=== PATIENT | male | born 1975 | race Hispanic/Latino ===

== ENCOUNTER → 2019-12-24 | Outpatient (CLI) | payer OTHER | END | disposition home or self-care (01) | LOC: RAH 14:27 | PROVIDERS: ATTEND Family Medicine | DX: Z13.6 Encounter for screening for cardiovascular disorders (principal) | CPT/HCPCS: 75571 ==

== ENCOUNTER 2024-11-17 10:15 | Emergency (ER) | payer BC, OTHER ==
[~2024-11-17] VITALS: Ht 188 cm; Wt 117.9 kg
--- NOTE | 2024-11-17 10:35 | ERN ---
ED Note History of Present Illness Stated Complaint: ANKLE INJURY Chief Complaint: Ankle Problem Time Seen by MD: 10:19 Dictation: PATIENT IS A 49-YEAR-OLD MALE HERE WITH TWO COMPLAINTS, 1ST COMPLAINT IS RIGHT DIFFUSE ANKLE PAIN AFTER HE WAS WALKING OUT OF A STORE THIS MORNING AND TWISTED TO AFTER HE STEPPED INTO A HOLE. HE HAS BEEN ABLE TO AMBULATE WITH PAINFUL WEIGHT-BEARING SINCE THE INCIDENT. NEUROVASCULAR CMS INTACT SKIN IS INTACT TO THE RIGHT ANKLE. SECOND COMPLAINT IS HIS BLOOD PRESSURE IS CURRENTLY 203 SYSTOLIC, LAST TOOK HIS BLOOD PRESSURE MEDICATION TWO DAYS AGO. STATES HE DOES NOT TAKE IT DAILY BECAUSE HE FORGETS ABOUT IT. Allergies: Coded Allergies: No Known Drug Allergies (Unverified Allergy, Unknown, 11/17/24) Past Medical History Past Medical History: Diabetes-Type II, Hypertension Surgical History: Other Surgical History Other: HERNIA REPAIR SX, FACIAL SX RN Note Reviewed/Agreed w/PFSH: Yes Review of System Dictation CONSTITUTIONAL: NEGATIVE EXCEPT FOR HPI HEAD/FACE: NEGATIVE EXCEPT FOR HPI EENT: NEGATIVE EXCEPT FOR HPI RESPIRATORY: NEGATIVE EXCEPT FOR HPI GASTROINTESTINAL/ABDOMINAL: NEGATIVE EXCEPT FOR HPI GENITOURINARY: NEGATIVE EXCEPT FOR HPI MUSCULOSKELETAL: NEGATIVE EXCEPT FOR HPI DIFFUSE RIGHT ANKLE PAIN INTEGUMENTARY: NEGATIVE EXCEPT FOR HPI NEUROLOGICAL/PSYCH: NEGATIVE EXCEPT FOR HPI HEMATOLOGIC/LYMPHATIC: NEGATIVE EXCEPT FOR HPI ALL SYSTEMS NEGATIVE, EXCEPT NOTED ABOVE. 13 POINT REVIEW OF SYSTEMS ASSESSED AND ALL NEGATIVE EXCEPT FOR ABOVE. Initial Vital Sign VS Vital Signs Date Time Temp Pulse Resp B/P (MAP) Pulse Ox O2 Delivery O2 Flow Rate FiO2 11/17/24 10:17 98.8 77 18 203/120 97 Room Air 0 11/17/24 10:27 21 Physical Exam Dictation VITAL SIGNS REVIEWED GENERAL APPEARANCE: ALERT, ORIENTED X 3, MILD ACUTE DISTRESS, WELL DEVELOPED, NOURISHED. HEAD AND FACE: NON-TRAUMATIC. EYES: PERRL, PINK CONJUNCTIVAS, EYELID NO TRAUMA, ANTERIOR CHAMBER WITH ARCUS SENILIS. EARS: PINNAS INTACT AND NO SIGNS OF TRAUMA OR ERYTHEMA EAR CANALS CLEAR AND NO DISCHARGE TM NO ERYTHEMA NOSE: NO DISCHARGE, NO BLEEDING. OROPHARYNX: MOUTH NORMAL, TONGUE PINK, PHARYNX CLEAR,NO ERYTHEMA, TONSILS NO EXUDATES, NO ABSCESSES NOTED, MUCOUS MEMBRANE MOIST NECK: SUPPLE, NON-TENDER, NO THYROMEGALY, NO MASSES, NO JVD, NO BRUITS BREAST:DEFERRED CHEST:NO TENDERNESS, NO CREPITUS, NO PARADOXICAL MOVEMENT, NO RETRACTIONS LUNGS:CLEAR, WELL-VENTILATED, SYMMETRIC, NO RALES, NO WHEEZING, NO RHONCHI, NO STRIDOR, GOOD BREATH SOUNDS BILATERALLY HEART: REGULAR RATE, REGULAR RHYTHM, NO MURMUR, NO GALLOPS VASCULAR: NO PERIPHERAL EDEMA, ABDOMEN: SOFT, POSITIVE BOWEL SOUNDS, NONDISTENDED, NO GUARDING, NONTENDER, NO REBOUND, NO MASSES NO HEPATOMEGALY, NO SPLENOMEGALY, NO PENNY'S SIGN, NO HERNIAS. RECTAL: DEFERRED GENITAL: DEFERRED NEUROLOGICAL: NORMAL SPEECH, MOTOR FUNCTION INTACT, SENSORY FUNCTION INTACT MUSCULOSKELETAL: NECK NONTENDER, FULL RANGE OF MOTION, BACK NONTENDER, FULL RANGE OF MOTION, EXTREMITIES: DIFFUSE RIGHT ANKLE PAIN TENDERNESS. SKIN INTACT DECREASED RANGE OF MOTION SECONDARY TO PAIN. SKIN: COLOR PINK, DRY, NO TURGOR, NO RASH, NO LACERATIONS, NO ABRASIONS, NO CONTUSIONS. LYMPHATIC: DEFERRED Results (Laboratory/Radiology) Laboratory/Radiology Exam Type: ANKLE COMP 3VWS RT Clinical Information: DIFFUSE ANKLE PAIN AFTER TWISTING IT THIS MORNING IN A HOLE Comparison: None Findings: Routine views of the ankles reveal no evidence of acute fracture or dislocation. The ankle mortise is intact. There is no evidence of arthritic or inflammatory changes except for small calcaneal spurs. The soft tissues are preserved. IMPRESSION: Small calcaneal spurs. Labs Reviewed?: Yes ED Course ED Course Orders Procedure Category Date Status Time Ankle Comp 3vws Rt RAD 11/17/24 Resulted 10:32 Clonidine Hcl 0.3 Mg PHA 11/17/24 Complete Tablet (Catapres 0. 11:00 Ibuprofen 800 Mg Tab PHA 11/17/24 Complete (Motrin) 11:00 Posterior Ankle Splint [email or web address] 11/17/24 In Process 10:32 Apply Ice Pack To: CPOE 11/17/24 Transmitted (Er) 10:32 Current Medications Medications (Trade) Dose Ordered Sig/Taylor Route PRN Reason Start Time Stop Time Status Last Admin Dose Admin Clonidine HCl (CATApres 0.3 MG TAB) 0.3 mg ONCE ONCE PO 11/17/24 11:00 11/17/24 11:01 DC 11/17/24 10:49 Ibuprofen (moTRIN) 800 mg ONCE ONCE PO 11/17/24 11:00 11/17/24 11:01 DC 11/17/24 10:49 Vital Signs Date Time Temp Pulse Resp B/P (MAP) Pulse Ox O2 Delivery O2 Flow Rate FiO2 11/17/24 10:49 73 195/122 11/17/24 10:27 98.8 77 18 203/120 97 Room Air* 0 21 11/17/24 10:17 98.8 77 18 203/120 97 Room Air 0 ELEVEN 20, NEUROVASCULAR CMS INTACT POST PLACEMENT OF POSTERIOR SHORT ANKLE SPLINT BY TECH. NEUROVASCULAR CMS INTACT. ADDITIONALLY BLOOD PRESSURE NOW 186/116 PATIENT HAS BEEN GOING TO GIVEN CLONIDINE3 MG AND WE WILL BE DISCHARGED HOME TO BE INSTRUCTED TO FOLLOW UP WITH HIS DOCTOR ON TUESDAY AND BE COMPLIANT WITH HIS MEDICATIONS. Medical Decision Making MDM MEDICAL DISCHARGE MAKING BASED ON X-RAY OF RIGHT ANKLE TREATMENT OF HYPERTENSION. RIGHT ANKLE X-RAY NEGATIVE AND SPLINTED WITH CRUTCHES GIVEN. SYSTOLIC BLOOD PRESSURE DOWN TO 189 AND CONTINUES TO DROP WITH CLONIDINE 0.3 MG P.O. GIVEN PATIENT STATES HE HAS A HIS MEDICATIONS AT HOME IN HIS VERIFIES THIS HE WAS TOLD TO FOLLOW UP WITH HIS PRIMARY CARE DOCTOR ON TUESDAY WITHOUT FAIL FOR MANAGEMENT. DX & DISP Disposition: Discharge Departure Impression: Primary Impression: Moderate right ankle sprain Additional Impressions: Accelerated hypertension, Noncompliance with medication regimen Condition: Stable Scripts Ibuprofen (Ibuprofen) 800 Mg Tablet 800 MG PO Q6H PRN for PAIN, #30 TAB Prov: ILEANA WOMACK STAPLING MACHINE OPERATOR 11/17/24 Additional Instructions: FOLLOW-UP WITH PRIMARY CARE PROVIDER IN 1 TO 2 DAYS. TAKE MEDICATIONS DIRECTED HERE IN THE EMERGENCY ROOM. OKAY TO CONTINUE HOME MEDICATIONS UNLESS OTHERWISE DISCUSSED DURING YOUR VISIT IN THE EMERGENCY ROOM TODAY. RETURN TO YOUR NEAREST EMERGENCY ROOM IF SYMPTOMS WORSEN OR IF THERE IS NO IMPROVEMENT. CALL 911 IF YOU NEED IMMEDIATE ASSISTANCE. TAKE TYLENOL OR MOTRIN BOWU-PES-YTLQUEU NEEDED AND IF NO CONTRAINDICATIONS ARE PRESENT. INCREASE ORAL HYDRATION. A WOUND CULTURE OR URINE CULTURE WAS ORDERED HERE IN THE EMERGENCY ROOM DEPARTMENT PLEASE FOLLOW-UP WITH PRIMARY CARE PROVIDER AND ADVISE THEM TO GET REPEAT PORTS FROM OUR FACILITY. IF YOU HAD ANY EAGLE WRAP/SPLINTS THAT WERE APPLIED HERE, PLEASE DO NOT REMOVE THEM UNTIL YOU SEE YOUR PRIMARY CARE OR SPECIALTY. SPLINT/CRUTCHES/NO WEIGHT-BEARING UNTIL CLEARED BY YOUR PRIMARY CARE DOCTOR. SEE HIM ON TUESDAY FOR REFERRAL TO ORTHOPEDIC SURGERY. COOL COMPRESSES TO PAIN THREE TO 4 TIMES A DAY. ALSO TAKE YOUR BLOOD PRESSURE MEDICATIONS DIRECTED BY YOUR DOCTOR AND SEE HIM FOR FOLLOW UP ON TUESDAY. Referrals: DAVIN MUÑOZ MD (PCP) Time of Disposition: 11:21 I have reviewed the case, and I agree with, Diagnosis and Plan ILEANA WOMACK NP Nov 17, 2024 10:35
[2024-11-17] MEDS: ibuPROFEN 800 MG TAB PO ONE (10:49)
[2024-11-17] MEDS: cloNIDine HCL 0.3 MG TABLET PO ONE (10:49)
--- NOTE | 2024-11-17 10:52 | HMCIMG ---
Exam Type: ANKLE COMP 3VWS RT Clinical Information: DIFFUSE ANKLE PAIN AFTER TWISTING IT THIS MORNING IN A HOLE Comparison: None Findings: Routine views of the ankles reveal no evidence of acute fracture or dislocation. The ankle mortise is intact. There is no evidence of arthritic or inflammatory changes except for small calcaneal spurs. The soft tissues are preserved. IMPRESSION: Small calcaneal spurs.
[2024-11-17] MEDS ORDERED: IBUP-2071 PO (11:23)
[2024-11-17] MEDS: NITROGLYCERIN 0.4 MG SL TAB SL STA (12:06)
--- NOTE | 2024-11-17 12:12 | NUR ---
POSTERIOR SPLINT APPLIED.
[2024-11-17 12:19] VITALS: BP 173/95; PULSE 70; RESP 20; TEMP 98; O2SAT 98
== END 2024-11-17 12:34 | disposition home or self-care (01) ==
LOC: EDH 10:15
DX: S93.401A Sprain of unspecified ligament of right ankle, initial encounter (principal); I10 Essential (primary) hypertension; E11.9 Type 2 diabetes mellitus without complications; Z91.148 Patient's other noncompliance with medication regimen for other reason; Z98.890 Other specified postprocedural states; X50.1XXA Overexertion from prolonged static or awkward postures, initial encounter; Y93.01 Activity, walking, marching and hiking; Y92.89 Other specified places as the place of occurrence of the external cause; Y99.8 Other external cause status
CPT/HCPCS: 29515; 73610; 99283